=== PATIENT | male | born 1975 | race Caucasian/White ===

== ENCOUNTER 2021-03-04 22:28 | Emergency (ER) | payer MEDICAID ==
[~2021-03-04] VITALS: Ht 177.8 cm; Wt 81.6 kg
--- NOTE | 2021-03-04 22:52 | NUR ---
PT BIBSELF FROM HOME C/O COUGH X3 DAYS. PT A/OX4/ TOLERATING R/A WELL WITH NO SOB AT 96%. CONNECT PT TO POX AND MONITOR
--- NOTE | 2021-03-04 23:14 | NUR ---
SANDRA RENTERIA AT PT'S BEDSIDE
--- NOTE | 2021-03-04 23:50 | NUR ---
SECTION LEADER SCREEN PRINTING AT PT'S BEDSIDE
[2021-03-05] MEDS ORDERED: PRED20TA PO (00:32)
[2021-03-05] MEDS ORDERED: ALBU18HF2 INH (00:32)
--- NOTE | 2021-03-05 00:39 | NUR ---
Patient discharged to home in stable condition. Rx and Written and verbal after care instructions given. Patient verbalizes understanding of instruction.
[2021-03-05 00:41] VITALS: BP 138/82
--- NOTE | 2021-03-09 15:05 | NUR ---
CALLED PATIENT FROM CONTACT INFO. LEFT MESSAGE.
== END 2021-03-05 00:41 | disposition home or self-care (01) ==
LOC: ER 22:32
DX: U07.1 COVID-19 (principal); J20.8 Acute bronchitis due to other specified organisms
CPT/HCPCS: 71046; 99284; C9803; U0003

== ENCOUNTER 2021-05-05 21:13 | Emergency (ER) | payer MEDICAID ==
[~2021-05-05] VITALS: Ht 177.8 cm; Wt 83.9 kg
[~2021-05-05 21:13] MED LIST: ALBU18HF2 INH; PRED20TA PO
--- NOTE | 2021-05-05 21:57 | NUR ---
BIBS C/O SOB X 2.5 MONTHS AND COUGH X 3 DAYS. AAOX4, NOT IN RESP DISTRESS. ON MONITOR. POX 97% ON RA. WILL CONTINUE TO MONITOR
[2021-05-05] MEDS ORDERED: predniSONE 20 MG TABLET ONE (22:36)
[2021-05-05] MEDS ORDERED: IPRATROPIUM NEB FS 0.5 MG/2.5 ML AMPUL.NEB ONE (22:46)
[2021-05-05] MEDS ORDERED: ALBUTEROL FS 2.5 MG/3 ML VIAL.NEB ONE (22:46)
[2021-05-05] MEDS ORDERED: ALBUTEROL FS 2.5 MG/3 ML VIAL.NEB NEB ONE (23:00)
[2021-05-05] MEDS ORDERED: IPRATROPIUM NEB FS 0.5 MG/2.5 ML AMPUL.NEB NEB ONE (23:00)
[2021-05-05] MEDS ORDERED: predniSONE 20 MG TABLET PO ONE (23:00)
--- NOTE | 2021-05-05 23:06 | NUR ---
XRAY AT BEDSIDE
[2021-05-05 23:18] LABS: BASOPHILS # (AUTO) 0.1 K/uL (0.0-0.2); EOSINOPHILS % (AUTO) 2.5 % (0.0-6.0); HEMATOCRIT 43 % (39-51); HEMOGLOBIN 14.5 g/dL (13.5-17.5); LYMPHOCYTES % (AUTO) 41.8 % (20.0-44.0); MEAN CORPUSCULAR HGB CONC 34 g/dl (31.0-36.0); MEAN CORPUSCULAR VOLUME 83 fL (80-96); MONOCYTES % (AUTO) 13.7 % (2.0-12.0); NEUTROPHILS # (AUTO) 2.9 K/uL (1.8-8.9); PLATELET COUNT (AUTO) 213 K/uL (150-450); RED BLOOD CELL COUNT(AUTO) 5.19 MIL/uL (4.5-6.0); WHITE BLOOD COUNT (AUTO) 7.1 K/uL (4.3-11.0)
[2021-05-06 01:53] LABS: CALCIUM, SERUM 9.6 mg/dL (8.5-10.1); CARBON DIOXIDE 26 mmol/L (21-32); CHLORIDE 102 mmol/L (98-107); CREATININE 1.1 mg/dL (0.6-1.3); GLUCOSE 103 mg/dL (74-106); POTASSIUM 3.7 mmol/L (3.5-5.1); SODIUM SERUM 141 mmol/L (136-145); UREA NITROGEN, BLOOD 12 mg/dL (7-18)
[2021-05-06 02:21] VITALS: BP 123/88
--- NOTE | 2021-05-06 02:21 | NUR ---
Patient discharged to home in stable condition. Written and verbal after care instructions given. Patient verbalizes understanding of instruction.
[2021-05-06] MEDS ORDERED: IBUP-1953 PO (02:24)
[2021-05-06] MEDS ORDERED: ACET-73 PO (02:24)
[2021-05-06] MEDS ORDERED: BENZ-13 PO (02:24)
== END 2021-05-06 02:42 | disposition home or self-care (01) ==
LOC: ER 21:15
DX: J06.9 Acute upper respiratory infection, unspecified (principal); Z79.899 Other long term (current) drug therapy
CPT/HCPCS: 36415; 71045; 80048; 83880; 84484; 85025; 93005; 94640; 99285; J7512

== ENCOUNTER 2022-04-24 22:30 | Emergency (ER) | payer MEDICAID ==
[~2022-04-24] VITALS: Ht 177.8 cm; Wt 92.5 kg
[~2022-04-24 22:30] MED LIST changes: +ACET-73 PO; +BENZ-13 PO; +IBUP-1953 PO
[2022-04-24 23:41] VITALS: BP 119/81
--- NOTE | 2022-04-24 23:42 | NUR ---
TO ER BED 19, BIBS C/O COUGH X2DAYS S/P TRIP FROM [facility]. AFEBRILE. HAS NOT TAKEN ANY COUGH MEDICATION, AAOX4, BREATHING EVEN AND NON LABORED
--- NOTE | 2022-04-24 23:52 | NUR ---
COVID AND FLU SWABS DONE AND SENT TO LAB
--- NOTE | 2022-04-25 00:12 | NUR ---
Patient does not wish to proceed with medical care recommended by Dr. Romero. Patient given information related to possible complications, up to and including , which could occur as a result of leaving the hospital at this time. Patient verbalizes understanding of risks involved due to leaving against medical advice. Patient has signed AMA form.
== END 2022-04-25 00:14 | disposition home or self-care (01) ==
LOC: ER 22:37
DX: R05.9 Cough, unspecified (principal); Z20.822 Contact with and (suspected) exposure to COVID-19; Z79.899 Other long term (current) drug therapy
CPT/HCPCS: 99283; 87426; 87804 ×2; C9803